=== PATIENT | female | born 1950 | race Caucasian/White ===

== ENCOUNTER 2017-02-12 13:02 | Emergency (ER) | payer OTHER ==
[~2017-02-12] VITALS: Ht 167.6 cm; Wt 90.7 kg
[~2017-02-12 13:02] MED LIST: ADULT LOW DOSE81 MG PO; ALTOPREV; ALTOPREV PO; ALTOPREV40 MG PO; AMLODIPINE BESY10 MG PO; ASPIRIN81 M2; ATROVENT IH; B12INJ PO; CALCIUM PO; CENTRUM SILVER1 EAC1 PO; DYAZIDE 37.5-21 EACH PO; EQL FLAXSEED O1 EACH PO; FISH OIL 1,0001 EAC7; FLEXERIL; FLEXERIL PO; FOSAMAX 70 MG T70 M1 PO; FOSAMAX 70 MG T70 MG PO; GEMFIBROZIL 60600 MG PO; GUANFACINE HCL2 MG PO; HYDROCODON-ACE1 EACH PO; K-DUR 20 MEQ T20 MEQ PO; KEPPRA 500 MG500 M1 PO; KEPPRA1000 MG PO; LOPID600 MG PO; LOVASTAT40; NORCO 5-325 TA1 EACH PO; OMEPRAZOLE; PREDNISONE 10 M10 MG; PRILOSEC 20 MG20 MG PO; PROCTOCREAM-HC30 G1 RC; SERTRALINE HCL100 MG PO; TEGRETOL XR200 MG PO; TEGRETOL XR400 MG; TEGRETOL XR400 MG PO; TORADOL 10 MG T10 MG PO; TRIAMCINOLONE A15 G1 TP; TRIAMTERENE-HC1 EAC1 PO; VICODIN 5-5001 EACH; VITAMIN D 5050000 I1 PO
[2017-02-12] MEDS ORDERED: CALCIUM CITRAT200 MG PO (13:36)
[2017-02-12] MEDS ORDERED: COLACE100 MG PO (13:37)
[2017-02-12] MEDS ORDERED: BIOTIN-D1 GM PO (13:37)
[2017-02-12] MEDS ORDERED: KEPPRA 500 MG500 M1 PO (13:38)
[2017-02-12] MEDS ORDERED: ZOLOFT50 MG PO (13:39)
[2017-02-12] MEDS ORDERED: MAXZIDE-25 MG1 EACH PO (13:41)
[2017-02-12] MEDS ORDERED: VESICARE10 M1 PO (13:41)
[2017-02-12] MEDS ORDERED: KLOR-CON 1010 MEQ PO (13:42)
[2017-02-12] MEDS ORDERED: TOPROL XL100 MG PO (13:42)
[2017-02-12] MEDS ORDERED: TEGRETOL XR400 MG PO (13:42)
[2017-02-12] MEDS ORDERED: TEGRETOL XR200 MG PO (13:42)
[2017-02-12 13:46] LABS: ABSOLUTE LYMPHOCYTES 1.5 thou/uL (0.8-5.3); ABSOLUTE MONOCYTES 0.7 thou/uL (0.0-1.2); ABSOLUTE NEUTROPHILS 3.1 thou/uL (1.6-8.1); BASOPHILS 0.8 %; EOSINOPHILS 0.3 %; HEMATOCRIT 43.9 % (37.0-47.0); HEMOGLOBIN 15.2 gm/dL (12.0-15.0); LYMPHOCYTES 27.9 %; MCH 31.3 pg (26.0-34.0); MCHC 34.6 g/dL (28.0-37.0); MCV 90.4 fL (80.0-100.0); MONOCYTES 12.6 %; MPV 7.8 fl. (7.2-11.1); NUCLEATED RBCS 0 /100WBC; PLATELET COUNT* 307 thou/uL (150-400); POLYS 58.4 %; RBC 4.85 mil/uL (4.20-5.00); RDW-CV 13.2 % (10.5-14.5); WBC 5.2 thou/uL (4.0-11.0)
[2017-02-12 13:55] LABS: CALCIUM 9.4 mg/dL (8.5-10.1); CREATININE 1.1 mg/dL (0.6-1.3); POTASSIUM 3.1 mmol/L (3.5-5.1)
[2017-02-12 14:00] LABS: ALBUMIN 3.8 g/dL (3.4-5.0); TOTAL BILIRUBIN 0.5 mg/dL (<0.1-1.0); TOTAL PROTEIN 8.2 g/dL (6.4-8.2)
[2017-02-12 14:39] LABS: URINE BILIRUBIN NEGATIVE (Negative); URINE BLOOD NEGATIVE (Negative); URINE CLARITY CLEAR; URINE COLOR YELLOW; URINE GLUCOSE-RANDOM NEGATIVE (Negative); URINE KETONES NEGATIVE (Negative); URINE LEUKOCYTES-REFLEX NEGATIVE (Negative); URINE NITRITE-REFLEX NEGATIVE (Negative); URINE PROTEIN NEGATIVE (Negative); URINE SPECIFIC GRAVITY 1.015 (1.005-1.030); URINE UROBILINOGEN 0.2 E.U./dl (0.2-1.0)
[2017-02-12] MEDS ORDERED: ZOFRAN ODT4 MG PO (14:57)
[2017-02-12 15:53] VITALS: BP 135/66
--- NOTE | 2017-02-12 16:39 | EKG ---
[place] [address] ELECTROCARDIOGRAM REPORT Name: YUSUF SUMMERS Room: [facility]#: [id number] Admission: 02/12/17 Attend Phys: Discharge: 02/12/17 Date of : 46 Report #: [id number] THIS REPORT FOR: //name// [facility] ED Test Date: 2017-02-12 Test Time: 13:33:20 Pat Name: YUSUF SUMMERS Department: Room: Gender: F Technical Support Engineer: Nick GRAF : 1950 Requested By: Rosalba Durham Order Number: [id number] MD: Shane Diggs Measurements Intervals [place] Rate: 55 P: 8 KS: 237 QRS: 22 QRSD: 98 T: 101 QT: 467 QTc: 447 Interpretive Statements Sinus rhythm Prolonged [place] interval Consider left atrial enlargement Abnormal R-wave progression, early transition Borderline repolarization abnormality Minimal ST elevation, inferior leads Compared to ECG 07/11/2011 13:25:30 ST (T wave) deviation now present Electronically Signed On 02-12-2017 16:39:27 PHYSICAL THERAPIST AIDE by Shane Diggs [email or web address] <ELECTRONICALLY SIGNED> By: Shane Diggs MD, FACC 02/12/17 1639 1333 1333 Shane Diggs MD, [facility] /EPI
== END 2017-02-12 15:54 | disposition home or self-care (01) ==
LOC: M.ERS 13:02
PROVIDERS: Nurse Practitioner Family
DX: K52.9 Noninfective gastroenteritis and colitis, unspecified (principal); B34.9 Viral infection, unspecified; I10 Essential (primary) hypertension; G40.909 Epilepsy, unspecified, not intractable, without status epilepticus; Z98.890 Other specified postprocedural states; Z86.73 Personal history of transient ischemic attack (TIA), and cerebral infarction without residual deficits; Z88.1 Allergy status to other antibiotic agents; Z88.0 Allergy status to penicillin; Z88.2 Allergy status to sulfonamides; Z88.8 Allergy status to other drugs, medicaments and biological substances

== ENCOUNTER 2017-12-01 07:36 | Emergency (ER) | payer OTHER ==
[~2017-12-01] VITALS: Ht 170.2 cm; Wt 97.5 kg
[~2017-12-01 07:36] MED LIST changes: +BIOTIN-D1 GM PO; +CALCIUM CITRAT200 MG PO; +COLACE100 MG PO; +KLOR-CON 1010 MEQ PO; +MAXZIDE-25 MG1 EACH PO; +TOPROL XL100 MG PO; +VESICARE10 M1 PO; +ZOFRAN ODT4 MG PO; +ZOLOFT50 MG PO
[2017-12-01] MEDS ORDERED: NITROGLYCERIN0.4 MG SUBLING (08:01)
[2017-12-01 08:05] VITALS: BP 161/76
[2017-12-01] MEDS ORDERED: JOCK ITCH15 GM TOP (08:07)
== END 2017-12-01 08:11 | disposition home or self-care (01) ==
LOC: M.ERS 07:36
DX: B35.6 Tinea cruris (principal); G40.909 Epilepsy, unspecified, not intractable, without status epilepticus; I10 Essential (primary) hypertension; Z90.49 Acquired absence of other specified parts of digestive tract; Z88.0 Allergy status to penicillin; Z88.1 Allergy status to other antibiotic agents; Z88.2 Allergy status to sulfonamides; Z88.8 Allergy status to other drugs, medicaments and biological substances

== ENCOUNTER 2018-04-21 03:07 | Inpatient (IN) | payer OTHER ==
[~2018-04-21] VITALS: Ht 167.6 cm; Wt 97.1 kg
[2018-04-21] VITALS (9 sets, daily range): BP systolic 107–163; BP diastolic 54–76
--- NOTE | ~2018-04-21 | CON ---
[address] [address] CONSULTATION Name: YUSUF SUMMERS Room: [address] IN M.R.#: [id number] Admission: 04/21/18 Attend Phys: Anthony Rodriguez MD Discharge: Date of : 46 Report #: [id number] THIS REPORT FOR: //name// CC: MARIELLE Arceo CARDIOLOGY CONSULTATION INDICATION: Left arm pain. HISTORY OF PRESENT ILLNESS: The patient is a very pleasant 67-year-old white female with no prior history of myocardial infarction. She reports history of stroke on one occasion and 3 TIAs. Additional cardiac risk factors include hypertension and possible dyslipidemia as well as borderline diabetes. The patient states she woke at 2:30 in the morning with pain running down her left arm from her shoulder to her lower arm on the back of the arm. She did not have any associated shortness of breath or diaphoresis. There was no chest pain. She called EMS. Nitroglycerin was given at the scene with relief of her left arm pain. She presented to the Emergency Room for further evaluation. EKGs and enzymes were unremarkable. She did have recurrence of her left arm pain and received a second sublingual nitroglycerin with resolution of her pain. At the time of my interview, she is pain free. A 12-lead EKG in the Emergency Room showed sinus rhythm without acute ST or T-wave abnormalities. PAST MEDICAL HISTORY: 1. Hypertension. 2. Hyperlipidemia. 3. CVA. 4. Borderline diabetes. 5. Possible coronary artery disease, although the patient is uncertain of this diagnosis. 6. Seizure disorder. PAST SURGICAL HISTORY: The patient had a vagal nerve stimulator placed. She has had a temporal lobotomy for seizure disorder. ALLERGIES: ANGIOTENSIN II ACETATE, ERYTHROMYCIN, GUAIFENESIN, PENICILLIN, SULFAS, ____. HOME MEDICATIONS: Amlodipine 10 mg daily; aspirin 81 mg daily; gemfibrozil 600 mg b.i.d.; guanfacine 2 mg daily; Keppra 1000 mg b.i.d.; Tegretol-XR 400 mg in the morning, 200 mg at night; lovastatin daily; omeprazole 20 mg b.i.d.; Zoloft 100 mg at bedtime; Maxzide 25 one tablet daily; VESIcare 10 mg daily; metoprolol succinate 100 mg b.i.d.; Nitro[place] [address] CONSULTATION Name: YUSUF SUMMERS Zainab Room: [address]#: [id number] Admission: 04/21/18 Attend Phys: Anthony Rodriguez MD Discharge: Date of : 46 Report #: [id number] SOCIAL HISTORY: The patient smoked in college, not since. She does not drink alcohol. She is . FAMILY HISTORY: The patient has uncles, aunts, and cousins with coronary artery disease. Mom had CVAs. REVIEW OF SYSTEMS: A 14-point review of systems is positive for convulsion seizures and mild right-sided weakness. She has a nocturnal cough. She reports dyspnea on exertion. She reports borderline diabetes. She reports occasional dysuria. She has seasonal allergies and medical allergies as outlined above. She reports history of depression that is under good control. She wears glasses without acute visual loss. She has partial dentures. Otherwise, 14-point review of systems was unremarkable. PHYSICAL EXAMINATION: VITAL SIGNS: Stable. Blood pressure 121/62, pulse is 66 and regular. GENERAL: This is a pleasant lady in no distress. Mood and affect appropriate. HEENT: Extraocular muscles intact. Mucous membranes moist. NECK: Shows no jugular venous distention. There are no carotid bruits. CHEST: Reveals clear lung rodriguez. CARDIOVASCULAR: Reveals a regular rhythm with normal S1 and S2. I do not appreciate gallop or murmur. ABDOMEN: Reveals normal bowel sounds. The abdomen is soft, nontender. EXTREMITIES: Shows no edema. Peripheral pulses are 2+ and palpable. SKIN: Warm and dry. LABORATORY DATA: A 12-lead EKG shows sinus rhythm with no acute ST or T-wave abnormalities. Troponin is less than 0.06 on 2 separate occasions. Chest shows no acute cardiopulmonary abnormalities. IMPRESSION AND RECOMMENDATIONS: 1. Left arm pain that is suspicious for possible angina. The patient is stable at this time. I do not see evidence of acute coronary syndrome. We will proceed with noninvasive stress testing. Further intervention will be pending the results of that study. 2. History of hypertension. Blood pressure appears adequately controlled on regimen outlined above. 3. Dyslipidemia. The patient is on a combination of gemfibrozil and lovastatin. Would continue home medications on discharge. 4. Borderline diabetes per primary physician. By: [id number] Diggs MD, FACC /nt
[~2018-04-21 03:07] MED LIST changes: -ASPIRIN81 M2; +ASPIRIN81 M2 PO; +JOCK ITCH15 GM TOP; -LOVASTAT40; +LOVASTAT40 PO; +NITROGLYCERIN0.4 MG SUBLING
[2018-04-21 03:33] LABS: ABSOLUTE EOSINOPHILS 0.1 thou/uL (0.0-0.7); ABSOLUTE LYMPHOCYTES 1.8 thou/uL (0.8-5.3); ABSOLUTE MONOCYTES 0.7 thou/uL (0.0-1.2); ABSOLUTE NEUTROPHILS 3.3 thou/uL (1.6-8.1); BASOPHILS 0.8 %; EOSINOPHILS 1.4 %; HEMATOCRIT 36.9 % (37.0-47.0); HEMOGLOBIN 12.7 gm/dL (12.0-15.0); LYMPHOCYTES 30.9 %; MCH 31.5 pg (26.0-34.0); MCHC 34.4 g/dL (28.0-37.0); MCV 91.6 fL (80.0-100.0); MONOCYTES 11.4 %; MPV 7.8 fl. (7.2-11.1); NUCLEATED RBCS 0 /100WBC; PLATELET COUNT* 247 thou/uL (150-400); POLYS 55.5 %; RBC 4.02 mil/uL (4.20-5.00); RDW-CV 13.5 % (10.5-14.5); WBC 5.9 thou/uL (4.0-11.0)
[2018-04-21 03:57] LABS: ANION GAP 10 mmol/L (7-16); BUN 27 mg/dL (7-18); CHLORIDE 100 mmol/L (98-107); CO2 29 mmol/L (21-32); CREATININE 1.4 mg/dL (0.6-1.3); GLUCOSE 135 mg/dL (70-99); POTASSIUM 3.4 mmol/L (3.5-5.1); SODIUM 139 mmol/L (136-145); TROPONIN-I LEVEL <0.06 ng/mL (<0.06)
[2018-04-21 03:58] LABS: ALBUMIN 3.6 g/dL (3.4-5.0); ALKALINE PHOSPHATASE 70 U/L (46-116); NT-PRO BRAIN NAT PEPTIDE 118 pg/mL (<300); SGOT 19 U/L (15-37); SGPT 17 U/L (30-65); TOTAL BILIRUBIN 0.2 mg/dL (<0.1-1.0); TOTAL PROTEIN 7.1 g/dL (6.4-8.2)
[2018-04-21 04:10] LABS: URINE BILIRUBIN NEGATIVE (Negative); URINE BLOOD NEGATIVE (Negative); URINE CLARITY CLEAR; URINE COLOR STRAW; URINE GLUCOSE-RANDOM NEGATIVE (Negative); URINE KETONES NEGATIVE (Negative); URINE LEUKOCYTES-REFLEX NEGATIVE (Negative); URINE NITRITE-REFLEX NEGATIVE (Negative); URINE PROTEIN 1+ (Negative); URINE SPECIFIC GRAVITY 1.015 (1.005-1.030); URINE UROBILINOGEN 0.2 E.U./dl (0.2-1.0)
[2018-04-21 04:10] LABS: PROTIME 10.6 Seconds (9.20-11.50)
--- NOTE | 2018-04-21 07:03 | NUR ---
PATIENT ADMITTED TO ROOM 223. CURTAIN SUPERVISOR IN PLACE. BELONGINGS AT BEDSIDE, DENIES NEED TO LOCK WITH SECURITY. ORIENTED TO ROOM AND CALL LIGHT. CALL LIGHT WITHIN REACH
--- NOTE | 2018-04-21 12:10 | NUR ---
ASSUMED PT CARE AT 0730, PTS ADMISSION DONE CHARTED. PT A/O X4, IS SLIGHTLY FORGETFUL AT TIMES AND TAKES EXTRA TIME TO ANSWER SOME QUESTIONS. PT REPORTS THIS IS DUE TO BRAIN SURGERY IN THE 80'S. PT C/O LYONS PAIN. VSS, SR/1ST AVB ON THE MONITOR. DISCUSSED THE PLAN OF CARE WITH PT, SHE VERBALIZED UNDERSTANDING BUT NEEDS IT REPEATED THROUGH THE MORNING. PT UP AD ANA, STEADY ON HER FEET, USES CALL LIGHT APPROPRIALTY. WILL CONTINUE WITH PLAN OF CARE
--- NOTE | 2018-04-21 12:15 | EKG ---
[place] [address] ELECTROCARDIOGRAM REPORT Name: YUSUF SUMMERS Room: [address] ADM IN M.R.#: [id number] Admission: 04/21/18 Attend Phys: Anthony Rodriguez MD Discharge: Date of : 46 Report #: [id number] THIS REPORT FOR: //name// [facility] ED Test Date: 2018-04-21 Test Time: 03:14:27 Pat Name: YUSUF SUMMERS Department: Room: [address] Gender: F Architect Marine: : 1950 Requested By: Kelsey Vallecillo Order Number: [id number] MD: Shane Diggs Measurements Intervals [place] Rate: 68 P: 15 IL: 249 QRS: 31 QRSD: 94 T: 87 QT: 402 QTc: 428 Interpretive Statements Sinus rhythm Prolonged [place] interval Compared to ECG 02/12/2017 13:33:20 ST (T wave) deviation no longer present Electronically Signed On 04-21-2018 12:15:41 CDT by Shane Diggs [email or web address] <ELECTRONICALLY SIGNED> By: Shane Diggs MD, [facility] 04/21/18 1215 0314 0314 Shane Diggs MD, FAC /EPI
--- NOTE | 2018-04-21 12:16 | EKG ---
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 : 1950 Requested By: eKlsey Vallecillo Order Number: [id number] MD: Shane Diggs Measurements Intervals [place] Rate: 68 P: 38 DE: 242 QRS: 34 QRSD: 90 T: 75 QT: 415 QTc: 442 Interpretive Statements Sinus rhythm Prolonged [place] interval Compared to ECG 02/12/2017 13:33:20 ST (T wave) deviation no longer present Electronically Signed On 04-21-2018 12:15:46 CDT by Shane Diggs [email or web address] <ELECTRONICALLY SIGNED> By: Shane Diggs MD, FAC 04/21/18 1215 0542 0542 Shane Diggs MD, [facility] /EPI
--- NOTE | 2018-04-21 19:53 | NUR ---
PTS LEFT ARM PAIN RETURNED THIS EVENING, ATTEMPTED NITRO SUBLINGUAL, PT DENIES RELIEF AND DOES NOT WANT ANY MORE. PT ORDERED MORPHINE, STATES HER ARM PAIN IS GONE BUT C/O NAUSEA, PT RESTING IN BED, DENIES THE NEED FOR ANYTHING MORE. REPORT GIVEN TO KATHLEEN LIRIANO.
--- NOTE | 2018-04-22 01:22 | NUR ---
RECEIVED REPORT AND ASSUMED CARE AT 1900. VSS. CARDIAC MONITORING IN PLACE. PT DENIES COMPLAINTS OF PAIN. ASSESSMENT COMPLETED CHARTED. DISCUSSED PLAN OF CARE WITH PT, VERBALIZED UNDERSTANDING. NOTHING TO EAT AFTER MIDNIGHT FOR STRESS TEST, OKAY TO DRINK WATER. NO CAFFEINE. PT UP AD ANA IN ROOM, ON RA. BED LOCKED IN LOWEST POSITION, CALL LIGHT WITHIN REACH.
[2018-04-22 03:41] VITALS: BP 139/61
[2018-04-22 08:00] VITALS: BP 124/72
--- NOTE | 2018-04-22 11:56 | NUR ---
ASSUMED CARE OF PATIENT THIS AM AT 0730. PATIENT IS ALERT AND ORIENTED X 4. SHE DENIES PAIN THIS AM. SHE HAS BEEN UP TO THE BR WITHOUT DIFFICULTY. TELE SHOWS SR WITH A 1DAVB. PATIENT TO HAVE A STRESS TEST TODAY. WILL CONTINUE TO MONITOR.
[2018-04-22 11:57] VITALS: BP 188/89
--- NOTE | 2018-04-22 12:19 | NUR ---
Pt is A&O. Resides at home with her . Normally active and independent. No DME. Hx of HH, does not recall the name of the agency. No hx of SNF. Goal is home at wi, no needs anticipated.
[2018-04-22 16:00] VITALS: BP 186/84
--- NOTE | 2018-04-22 16:52 | CARDNUC ---
[place] [address] CARDIAC NUCLEAR IMAGING REPORT Name: YUSUF SUMMERS Room: [address] IN [facility]#: [id number] Admission: 04/21/18 Attend Phys: Anthony Rodriguez, Discharge: Date of : 46 Date of Service: 04/22/18 1652 Report #: [id number] THIS REPORT FOR: //name// APPROVED REPORT Imaging Protocol: Stress Tc-99m/Rest Tc-99m 2 days Study performed: 04/21/2018 10:42:00 Indication: CVA/TIA X4 Patient Location: In-Patient Room #: 223 Stress Tech: Lissa Rasmussen Stress Nurse: Michelle Contreras RN NM Tech:GAVINO Mittal Ht: 5 ft 5 in Wt: 214 lbs BSA: 2.04 m2 HR: 60 bpm BP: 155/66 mmHg BMI: 35.60 Rhythm: NSR Medical History Medications: Amlodipine, Metoprolol, Nitroglycerin, Lopid, Guanfacine, Maxzide, Atorvastatin Allergies: Quanacin, Penicillins, SulfaABT, Guaifensin, Erythromycin Base, AngiotensinII Acetate Cardiac Risk Factors: Age, Hyperlipidemia, HTN, FHX of CAD Meds Held (24 hrs): Metoprolol Pharmacologic Stress Pharmacologic stress test was performed by injecting Regadenoson 0.4 mg IV push over 10-15 seconds immediately followed by the intravenous injection of 34.4 mCi of Tc-99m Sestamibi. Time of stress injection: 1155 Date: 04/22/2018 Administration Route: IV Administration Site: Left AC Gated Stress SPECT was performed 40 minutes after stress injection. The images were gated to evaluate regional wall motion and calculate left ventricular ejection fraction. Prone imaging was performed. Stress Test Details Stress Test: Pharmacologic stress testing performed using 0.4 mg of regadenoson per 5 mL given IV over 10 seconds. Reason for pharmacologic stress test: [place] [address] CARDIAC NUCLEAR IMAGING REPORT Name: YUSUF SUMMERS Zainab Room: [address]#: [id number] Admission: 04/21/18 Attend Phys: Anthony Rodriguez, Discharge: Date of : 46 Date of Service: 04/22/18 1652 Report #: [id number] HR Max Heart Rate (APMHR): 151 bpm Resting HR: 60 bpm Target HR (85% APMHR): 128 bpm Max HR Achieved: 103 bpm % of APMHR: 68 Recovery HR: 89 bpm HR response to stress: Normal HR response to stress BP Resting BP: 155/66 mmHg Max BP: 145/57 mmHg Recovery BP: 179/74 mmHg BP response to stress: Normal blood pressure response to stress. ECG Resting ECG: Sinus Rhythm Stress ECG: Sinus Rhythm ST Change: None Arrhythmia: None Recovery ECG: Sinus Rhythm Recovery ST Change: None Recovery Arrhythmia: None Clinical Reason for Termination: Completed protocol Stress Symptoms: None The patient tolerated Lexiscan infusion without significant symptoms. Stress ECG Conclusion The baseline 12-lead EKG shows sinus rhythm without significant ST or T wave abnormality. EKGs obtained during and post Lexiscan infusion show sinus rhythm with no significant ST or T wave changes when compared baseline. There were no stress-induced arrhythmias. Study Quality Study: Good Artifact: No artifact Study Data Post stress, the left ventricular ejection was 69%.. Perfusion Perfusion images obtained after Lexiscan stress show uniform uptake of the radioisotope throughout the myocardium. There [place] [address] CARDIAC NUCLEAR IMAGING REPORT Name: YUSUF SUMMERS Room: [address]#: [id number] Admission: 04/21/18 Attend Phys: Anthony Rodriguez, Discharge: Date of : 46 Date of Service: 04/22/18 1652 Report #: [id number] to suggest infarct or ischemia. Wall Motion Normal left ventricular wall motion. Nuclear Conclusion ECG Findings: negative for ischemia Clinical Findings: negative for ischemia Nuclear Findings: negative for ischemia Exercise Capacity: not assessed Left Ventricular Function: normal Risk Study: low Myocardial perfusion images show no defect to suggest infarct or ischemia. Left ventricular systolic function is normal on gated studies. This is a low risk study. <Conclusion> The baseline 12-lead EKG shows sinus rhythm without significant ST or T wave abnormality. EKGs obtained during and post Lexiscan infusion show sinus rhythm with no significant ST or T wave changes when compared baseline. There were no stress-induced arrhythmias. <ELECTRONICALLY SIGNED> By: Shane Diggs MD, FACC 04/22/181651 51 51 Shane Diggs MD, FACC /INF
[2018-04-22 20:05] VITALS: BP 134/63
[2018-04-22 23:24] VITALS: BP 147/54
[2018-04-23 04:50] VITALS: BP 148/66
--- NOTE | 2018-04-23 05:17 | NUR ---
PATIENT IS EAGER TO DISCHARGE HOME TODAY. DENIES PAIN AND DISCOMFORT, BUT DID HAVE EPISODE OF NAUSEA/VOMITING THIS AM. PATIENT DENIES THE DESIRE FOR ANTI-EMETIC MEDICATION. COLD WASH CLOTHS PROVIDED FOR HEAD AND NECK. RELIEF OBTAINED AND PATIENT RESTING AT THIS TIME. PATIENT INFORMED OF SECOND PART OF STRESS TEST TO BE DONE TODAY, VERBALIZES UNDERSTANDING. CALL LIGHT WITHIN REACH.
[2018-04-23 09:55] VITALS: BP 207/153
[2018-04-23 12:46] VITALS: BP 127/72
--- NOTE | 2018-04-23 13:26 | NUR ---
I HAVE REVIEWED THE STUDENT'S CHARTING.
--- NOTE | 2018-04-23 16:19 | NUR ---
ORDER RECEIVD TO DISCHARGE PATINET HOME TO SELF CARE. MED REC, MEDICAITON EDUCATION, STROKE EDUCATION, AD NEED FOR FOLLOW UP APPOINTMENTS OCVERED AND STATES UNDERSTOOD BY PATIENT. IV AND TELEMETRY PACK REOMVED. PATINET GIVEN ADEQUATE TIME FOR QUESTIONS AND ALL QUESTIONS HAVE BEEN ANSWERED. HOURLY ROUNDING COMPLETED FOR PATIENT SAFETY. DISCHARGE TIME OF 13:45.
== END 2018-04-23 13:40 | disposition home or self-care (01) | DRG 556 ==
LOC: M.ERS 03:07 → M.TBA-ER 06:00 → M.2W 06:00
PROVIDERS: Emergency Medicine
DX: M79.18 Myalgia, other site (principal); I25.10 Atherosclerotic heart disease of native coronary artery without angina pectoris; G40.909 Epilepsy, unspecified, not intractable, without status epilepticus; E78.5 Hyperlipidemia, unspecified; R73.03 Prediabetes; I12.9 Hypertensive chronic kidney disease with stage 1 through stage 4 chronic kidney disease, or unspecified chronic kidney disease; N18.3 Chronic kidney disease, stage 3 (moderate); Z90.49 Acquired absence of other specified parts of digestive tract; Z88.1 Allergy status to other antibiotic agents; Z88.0 Allergy status to penicillin; Z88.2 Allergy status to sulfonamides; Z88.8 Allergy status to other drugs, medicaments and biological substances; Z86.73 Personal history of transient ischemic attack (TIA), and cerebral infarction without residual deficits; Z82.49 Family history of ischemic heart disease and other diseases of the circulatory system; Z82.3 Family history of stroke

== ENCOUNTER 2019-04-26 10:28 | Emergency (ER) | payer MEDICARE ==
[~2019-04-26] VITALS: Ht 167.6 cm; Wt 97.5 kg
[~2019-04-26 10:28] MED LIST changes: +OMEPRAZOLE40 MG PO; -PRILOSEC 20 MG20 MG PO
[2019-04-26] MEDS ORDERED: LIPITOR 20 MG T20 M1 PO (10:41)
[2019-04-26] MEDS ORDERED: ISOSORBIDE MONO30 M1 PO (10:42)
[2019-04-26] MEDS ORDERED: KLOR-CON 10 ER10 MEQ PO (10:43)
[2019-04-26] MEDS ORDERED: OXYBUTYNIN 5 MG5 M2 PO (10:44)
[2019-04-26] MEDS ORDERED: RESTASIS1 EACH OPHTHALMIC (10:44)
[2019-04-26] MEDS ORDERED: ZOLOFT 50 MG TA50 M1 PO (10:45)
[2019-04-26 11:13] LABS: INFLUENZA A ANTIGEN Negative (Negative); INFLUENZA B ANTIGEN Negative (Negative)
[2019-04-26] MEDS ORDERED: TESSALON PERLE100 M1 PO (11:49)
[2019-04-26 11:52] VITALS: BP 121/70
== END 2019-04-26 11:52 | disposition home or self-care (01) ==
LOC: M.ERS 10:28
PROVIDERS: Emergency Medicine Emergency Medical Services
DX: B34.9 Viral infection, unspecified (principal); I10 Essential (primary) hypertension; Z90.49 Acquired absence of other specified parts of digestive tract; Z86.73 Personal history of transient ischemic attack (TIA), and cerebral infarction without residual deficits; Z88.0 Allergy status to penicillin; Z88.1 Allergy status to other antibiotic agents; Z88.2 Allergy status to sulfonamides; Z88.8 Allergy status to other drugs, medicaments and biological substances

== ENCOUNTER 2019-05-06 14:49 | Emergency (ER) | payer MEDICARE ==
[~2019-05-06] VITALS: Ht 167.6 cm; Wt 93.4 kg
[~2019-05-06 14:49] MED LIST changes: +ISOSORBIDE MONO30 M1 PO; +KLOR-CON 10 ER10 MEQ PO; +LIPITOR 20 MG T20 M1 PO; +OXYBUTYNIN 5 MG5 M2 PO; +RESTASIS1 EACH OPHTHALMIC; +TESSALON PERLE100 M1 PO; +ZOLOFT 50 MG TA50 M1 PO
[2019-05-06] MEDS ORDERED: KEFLEX500 M1 PO (15:18)
[2019-05-06 15:45] VITALS: BP 149/78
== END 2019-05-06 15:46 | disposition home or self-care (01) ==
LOC: M.ERS 14:49
DX: J02.9 Acute pharyngitis, unspecified (principal); I10 Essential (primary) hypertension; Z88.2 Allergy status to sulfonamides; Z88.0 Allergy status to penicillin; Z88.1 Allergy status to other antibiotic agents; Z88.8 Allergy status to other drugs, medicaments and biological substances; Z90.49 Acquired absence of other specified parts of digestive tract

== ENCOUNTER 2019-08-21 03:13 | Emergency (ER) | payer MEDICARE ==
[~2019-08-21] VITALS: Ht 170.2 cm; Wt 93.0 kg
[~2019-08-21 03:13] MED LIST changes: +KEFLEX500 M1 PO
[2019-08-21 03:27] VITALS: BP 167/80
[2019-08-21] MEDS ORDERED: NORVASC10 MG PO (03:31)
[2019-08-21] MEDS ORDERED: GEMFIBROZIL 60600 MG PO (03:32)
[2019-08-21] MEDS ORDERED: LIPITOR 20 MG T20 M1 PO (03:32)
[2019-08-21] MEDS ORDERED: ASA81BEC PO (03:32)
[2019-08-21] MEDS ORDERED: KEPPRA 500 MG500 MG PO (03:33)
[2019-08-21] MEDS ORDERED: ISOSORBIDE DINI30 MG PO (03:33)
[2019-08-21] MEDS ORDERED: LOPRESSOR100 M1 PO (03:33)
[2019-08-21] MEDS ORDERED: EFFER-K 10 MEQ10 ME1 PO (03:34)
[2019-08-21] MEDS ORDERED: PRILOSEC OTC20 MG PO (03:34)
[2019-08-21] MEDS ORDERED: OXYBUTYNIN 5 MG5 M1 PO (03:34)
[2019-08-21] MEDS ORDERED: RESTASIS MULTI5.5 ML OPHTHALMIC (03:35)
[2019-08-21] MEDS ORDERED: SERTRALINE HCL100 MG PO (03:35)
[2019-08-21] MEDS ORDERED: ZOLOFT 50 MG TA50 M1 PO (03:35)
[2019-08-21] MEDS ORDERED: TRIAMTERENE-HC1 EAC2 PO (03:36)
[2019-08-21] MEDS ORDERED: TEGRETOL XR200 MG PO ×2 (03:36)
[2019-08-21] MEDS ORDERED: DIPHENHIST50 MG PO (03:39)
[2019-08-21] MEDS ORDERED: PREDNISONE50 MG PO (03:39)
== END 2019-08-21 03:46 | disposition home or self-care (01) ==
LOC: M.ERS 03:13
DX: L23.9 Allergic contact dermatitis, unspecified cause (principal); Z88.0 Allergy status to penicillin; Z88.1 Allergy status to other antibiotic agents; Z88.2 Allergy status to sulfonamides; Z88.8 Allergy status to other drugs, medicaments and biological substances

== ENCOUNTER 2019-09-30 04:32 | Emergency (ER) | payer MEDICARE ==
[~2019-09-30] VITALS: Ht 170.2 cm; Wt 93.0 kg
[~2019-09-30 04:32] MED LIST changes: +ASA81BEC PO; +DIPHENHIST50 MG PO; +EFFER-K 10 MEQ10 ME1 PO; +ISOSORBIDE DINI30 MG PO; +KEPPRA 500 MG500 MG PO; +LOPRESSOR100 M1 PO; +NORVASC10 MG PO; +OXYBUTYNIN 5 MG5 M1 PO; +PREDNISONE50 MG PO; +PRILOSEC OTC20 MG PO; +RESTASIS MULTI5.5 ML OPHTHALMIC; +TRIAMTERENE-HC1 EAC2 PO
[2019-09-30] MEDS ORDERED: PREDNISONE50 MG PO (05:35)
[2019-09-30 05:49] VITALS: BP 157/47
== END 2019-09-30 05:49 | disposition home or self-care (01) ==
LOC: M.ERS 04:32
DX: L23.9 Allergic contact dermatitis, unspecified cause (principal); H05.223 Edema of bilateral orbit; I10 Essential (primary) hypertension; K21.9 Gastro-esophageal reflux disease without esophagitis; Z88.0 Allergy status to penicillin; Z88.1 Allergy status to other antibiotic agents; Z88.2 Allergy status to sulfonamides; Z88.8 Allergy status to other drugs, medicaments and biological substances; Z86.73 Personal history of transient ischemic attack (TIA), and cerebral infarction without residual deficits

== ENCOUNTER 2019-12-23 16:49 | Emergency (ER) | payer MEDICARE ==
[~2019-12-23] VITALS: Ht 167.6 cm; Wt 90.7 kg
[2019-12-23] MEDS ORDERED: CALCIUM CITRAT100 GM PO (17:10)
[2019-12-23] MEDS ORDERED: FLONASE 0.05%50 MCG NARES (17:10)
[2019-12-23] MEDS ORDERED: CENTRUM SILVER1 EAC6 PO (17:10)
[2019-12-23] MEDS ORDERED: VITAMIN D310 MC2 PO (17:11)
[2019-12-23] MEDS ORDERED: ZPAK PO (17:54)
[2019-12-23] MEDS ORDERED: PREDNISONE 20 M20 MG PO (17:54)
[2019-12-23 18:10] VITALS: BP 166/77
== END 2019-12-23 18:12 | disposition home or self-care (01) ==
LOC: M.ERS 16:49
DX: J02.9 Acute pharyngitis, unspecified (principal); Z20.828 Contact with and (suspected) exposure to other viral communicable diseases; I10 Essential (primary) hypertension; K21.9 Gastro-esophageal reflux disease without esophagitis; Z88.8 Allergy status to other drugs, medicaments and biological substances; Z88.1 Allergy status to other antibiotic agents; Z88.0 Allergy status to penicillin; Z88.2 Allergy status to sulfonamides; Z79.899 Other long term (current) drug therapy; Z79.82 Long term (current) use of aspirin; Z86.73 Personal history of transient ischemic attack (TIA), and cerebral infarction without residual deficits

== ENCOUNTER 2020-04-22 13:38 | Emergency (ER) | payer MEDICARE ==
[~2020-04-22] VITALS: Ht 170.2 cm; Wt 90.7 kg
[~2020-04-22 13:38] MED LIST changes: +CALCIUM CITRAT100 GM PO; +CENTRUM SILVER1 EAC6 PO; +FLONASE 0.05%50 MCG NARES; +PREDNISONE 20 M20 MG PO; +VITAMIN D310 MC2 PO; +ZPAK PO
[2020-04-22 13:46] VITALS: BP 172/55
[2020-04-22] MEDS ORDERED: TOPROL XL50 MG (13:55)
[2020-04-22] MEDS ORDERED: KLOR-CON 10 ER10 MEQ PO (13:55)
[2020-04-22] MEDS ORDERED: DOXYCYCLINE 10100 M2 PO (13:57)
== END 2020-04-22 14:45 | disposition home or self-care (01) ==
LOC: M.ERS 13:38
DX: S91.112A Laceration without foreign body of left great toe without damage to nail, initial encounter (principal); L03.031 Cellulitis of right toe; I10 Essential (primary) hypertension; K21.9 Gastro-esophageal reflux disease without esophagitis; F32.9 Major depressive disorder, single episode, unspecified; Z86.73 Personal history of transient ischemic attack (TIA), and cerebral infarction without residual deficits; Z79.899 Other long term (current) drug therapy; Z79.82 Long term (current) use of aspirin; Z88.8 Allergy status to other drugs, medicaments and biological substances; Z88.1 Allergy status to other antibiotic agents; Z88.0 Allergy status to penicillin; Z88.2 Allergy status to sulfonamides; X50.0XXA Overexertion from strenuous movement or load, initial encounter; Y93.89 Activity, other specified; Y92.89 Other specified places as the place of occurrence of the external cause; Y99.8 Other external cause status

== ENCOUNTER 2020-11-20 06:49 | Inpatient (IN) | payer MEDICARE ==
[~2020-11-20] VITALS: Ht 170.2 cm; Wt 95.3 kg
[~2020-11-20 06:49] MED LIST changes: +DOXYCYCLINE 10100 M2 PO; +IMDUR 30 MG TAB30 M1 PO; -ISOSORBIDE MONO30 M1 PO; +TOPROL XL50 MG
[2020-11-20 06:54] VITALS: BP 153/68
[2020-11-20] MEDS ORDERED: ZONEGRAN100 MG PO (07:04)
[2020-11-20 07:31] LABS: ABSOLUTE EOSINOPHILS 0.1 thou/uL (0.0-0.7); ABSOLUTE MONOCYTES 0.6 thou/uL (0.0-1.2); ABSOLUTE NEUTROPHILS 3.2 thou/uL (1.6-8.1); BASOPHILS 0.5 %; EOSINOPHILS 2.1 %; HEMATOCRIT 41.1 % (37.0-47.0); HEMOGLOBIN 13.9 gm/dL (12.0-15.0); LYMPHOCYTES 33.3 %; MCH 30.3 pg (26.0-34.0); MCHC 33.9 g/dL (28.0-37.0); MCV 89.2 fL (80.0-100.0); MONOCYTES 9.9 %; MPV 7.7 fl. (7.2-11.1); NUCLEATED RBCS 0 /100WBC; PLATELET COUNT* 296 thou/uL (150-400); POLYS 54.2 %; RBC 4.61 mil/uL (4.20-5.00); RDW-CV 13.7 % (10.5-14.5); WBC 5.9 thou/uL (4.0-11.0)
[2020-11-20 07:35] LABS: CREATININE 1.3 mg/dL (0.6-1.3); POTASSIUM 3.6 mmol/L (3.5-5.1)
[2020-11-20 07:38] LABS: ALBUMIN 4.2 g/dL (3.4-5.0); TOTAL BILIRUBIN 0.3 mg/dL (<0.1-1.0); TOTAL PROTEIN 8.1 g/dL (6.4-8.2)
[2020-11-20 08:43] LABS: MAGNESIUM 2.4 mg/dL (1.8-2.4)
--- NOTE | 2020-11-20 10:22 | EKG ---
[place] [address] ELECTROCARDIOGRAM REPORT Name: MELINAYUSUF FRANCE Room: [facility]#: [id number] Admission: 11/20/20 Attend Phys: Discharge: Date of : 46 Date of Service: 11/20/20 0656 Report #: [id number] THIS REPORT FOR: //name// [facility] ED Test Date: 2020-11-20 Test Time: 06:56:12 Pat Name: YUSUF SUMMERS Department: Room: Gender: Strawhat Sizer: : 1950 Requested By: Jann Lemon Order Number: [id number] MD: Binu Billingsley Measurements Intervals [place] Rate: 54 P: 36 ND: 232 QRS: 25 QRSD: 87 T: 80 QT: 424 QTc: 402 Interpretive Statements Sinus bradycardia artifact noted Prolonged [place] interval Compared to ECG 04/21/2018 05:42:36 rate has slowed Electronically Signed On 11-20-2020 10:22:03 CDT by Binu Billingsley [email or web address] <ELECTRONICALLY SIGNED> By: Binu Billingsley MD, [facility] 11/20/20 1022 0656 Binu Billingsley MD, [facility] /EPI
--- NOTE | 2020-11-20 10:24 | EKG ---
[place] [address] ELECTROCARDIOGRAM REPORT Name: MELINAYUSUF Room: [facility]#: [id number] Admission: 11/20/20 Attend Phys: Discharge: Date of : 46 Date of Service: 11/20/20904 Report #: [id number] THIS REPORT FOR: //name// [facility] ED Test Date: 2020-11-20 Test Time: 09:05:03 Pat Name: YUSUF SUMMERS Department: Room: Gender: F Captain [employer]: : 1950 Requested By: Jann Lemon Order Number: [id number] MD: Binu Billingsley Measurements Intervals [place] Rate: 48 P: 30 IA: 245 QRS: 12 QRSD: 88 T: 99 QT: 484 QTc: 433 Interpretive Statements Sinus bradycardia Prolonged [place] interval Nonspecific T abnormalities, lateral leads Compared to ECG 11/20/2020 06:56:12 no change Electronically Signed On 11-20-2020 10:23:58 CDT by Binu Billingsley [email or web address] <ELECTRONICALLY SIGNED> By: Binu Billingsley MD, [facility] 11/20/20 1023 4 09 Binu Billingsley MD, [facility] /EPI
[2020-11-20 12:40] VITALS: BP 132/48
[2020-11-20 15:00] VITALS: BP 109/54
[2020-11-20] MEDS ORDERED: ZOLOFT 50 MG TA50 MG PO (15:52)
[2020-11-20 16:00] VITALS: BP 144/82
[2020-11-20 20:00] VITALS: BP 116/51
[2020-11-21 00:20] VITALS: BP 115/54
[2020-11-21 04:19] VITALS: BP 104/48
--- NOTE | 2020-11-21 05:10 | NUR ---
ASSUMED CARE OF PT AFTER REPORT AT 1930. PT A&OX4. VSS. PHYSICAL ASSESSMENT COMPLETED AND CHARTED. PT ON RA. PT TRACING SR/SB ON TELE. PT UPADLIB TO RESTROOM. PT DENIES ANY PAIN. CALL LIGHT WITHIN REACH.
[2020-11-21 11:36] VITALS: BP 137/57
== END 2020-11-21 11:50 | disposition home or self-care (01) | DRG 310 ==
LOC: M.ERS 06:49 → M.TBA-ER 10:24 → M.2W 13:22
PROVIDERS: Emergency Medicine Emergency Medical Services; ADMIT Internal Medicine; ATTEND Internal Medicine
DX: R00.1 Bradycardia, unspecified (principal); Z20.822 Contact with and (suspected) exposure to COVID-19; I10 Essential (primary) hypertension; K21.9 Gastro-esophageal reflux disease without esophagitis; F32.9 Major depressive disorder, single episode, unspecified; M25.512 Pain in left shoulder; E78.5 Hyperlipidemia, unspecified; G40.909 Epilepsy, unspecified, not intractable, without status epilepticus; R35.0 Frequency of micturition; E03.9 Hypothyroidism, unspecified; T44.7X5A Adverse effect of beta-adrenoreceptor antagonists, initial encounter; Z86.73 Personal history of transient ischemic attack (TIA), and cerebral infarction without residual deficits; Z88.1 Allergy status to other antibiotic agents; Z88.0 Allergy status to penicillin; Z88.2 Allergy status to sulfonamides; Z88.8 Allergy status to other drugs, medicaments and biological substances; Z82.49 Family history of ischemic heart disease and other diseases of the circulatory system; Y92.89 Other specified places as the place of occurrence of the external cause

== ENCOUNTER 2020-11-23 16:00 | Emergency (ER) | payer MEDICARE ==
[~2020-11-23] VITALS: Ht 167.6 cm; Wt 95.3 kg
[~2020-11-23 16:00] MED LIST changes: +ZOLOFT 50 MG TA50 MG PO; +ZONEGRAN100 MG PO
[2020-11-23 17:13] LABS: ABSOLUTE BASOPHILS 0.1 thou/uL (0.0-0.2); ABSOLUTE EOSINOPHILS 0.1 thou/uL (0.0-0.7); ABSOLUTE LYMPHOCYTES 1.5 thou/uL (0.8-5.3); ABSOLUTE MONOCYTES 0.7 thou/uL (0.0-1.2); ABSOLUTE NEUTROPHILS 4.2 thou/uL (1.6-8.1); BASOPHILS 0.9 %; EOSINOPHILS 1.1 %; HEMATOCRIT 41.6 % (37.0-47.0); HEMOGLOBIN 14.3 gm/dL (12.0-15.0); LYMPHOCYTES 23.5 %; MCH 30.7 pg (26.0-34.0); MCHC 34.3 g/dL (28.0-37.0); MCV 89.5 fL (80.0-100.0); MONOCYTES 10.6 %; MPV 7.5 fl. (7.2-11.1); NUCLEATED RBCS 0 /100WBC; PLATELET COUNT* 301 thou/uL (150-400); POLYS 63.9 %; RBC 4.64 mil/uL (4.20-5.00); RDW-CV 13.9 % (10.5-14.5); WBC 6.5 thou/uL (4.0-11.0)
[2020-11-23 17:21] LABS: CALCIUM 9.5 mg/dL (8.5-10.1); CREATININE 1.3 mg/dL (0.6-1.3); POTASSIUM 3.2 mmol/L (3.5-5.1)
[2020-11-23 17:32] LABS: ALBUMIN 4.2 g/dL (3.4-5.0); TOTAL BILIRUBIN 0.3 mg/dL (<0.1-1.0); TOTAL PROTEIN 8.4 g/dL (6.4-8.2)
[2020-11-23] MEDS ORDERED: NEURONTIN 300M300 M2 PO (19:04)
[2020-11-23 19:14] VITALS: BP 143/78
--- NOTE | 2020-11-25 14:14 | EKG ---
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 Leader: : 1950 Requested By: Katerina Webb Order Number: [id number] MD: Binu Billingsley Measurements Intervals [place] Rate: 97 P: 57 NM: 216 QRS: 62 QRSD: 86 T: 98 QT: 359 QTc: 456 Interpretive Statements Sinus rhythm Prolonged [place] interval Nonspecific T abnormalities, lateral leads Compared to ECG 11/20/2020 09:05:03 Sinus bradycardia no longer present T-wave abnormality still present Electronically Signed On 11-25-2020 14:14:17 CDT by Binu Billingsley [email or web address] <ELECTRONICALLY SIGNED> By: Binu Billingsley MD, FACC 11/25/20 1414 161 161 Binu Billingsley MD, [facility] /EPI
== END 2020-11-23 19:15 | disposition home or self-care (01) ==
LOC: M.ERS 16:00
PROVIDERS: Nurse Practitioner Family
DX: M79.602 Pain in left arm (principal); I10 Essential (primary) hypertension; K21.9 Gastro-esophageal reflux disease without esophagitis; F32.9 Major depressive disorder, single episode, unspecified; E78.5 Hyperlipidemia, unspecified; Z79.899 Other long term (current) drug therapy; Z88.0 Allergy status to penicillin; Z88.2 Allergy status to sulfonamides; Z88.1 Allergy status to other antibiotic agents